=== PATIENT | male | born 1985 | race Caucasian/White ===

== ENCOUNTER 2018-12-26 10:26 | Emergency (ER) | payer OTHER, BC ==
[2018-12-26] MEDS ORDERED: methylPREDNISolone Sodium Succinate 125 MG/2 ML SDV IVPUSH ONE (11:03)
[2018-12-26] MEDS ORDERED: diphenhydrAMINE 50 MG/ML SDV IVPUSH ONE (11:05)
[2018-12-26] MEDS ORDERED: Famotidine 20 MG/2 ML SDV IVPUSH ONE (11:05)
[2018-12-26] MEDS ORDERED: Cephalexin 500 MG Cap PO ONE (11:05)
--- NOTE | 2018-12-26 11:13 | EDM.PDOC ---
ED HPI GENERAL MEDICAL PROBLEM - General Chief Complaint: Skin Complaint Stated Complaint: BITE Time Seen by Provider: 12/26/18 10:54 Source of Information: Reports: Patient History Limitations: Reports: No Limitations - History of Present Illness INITIAL COMMENTS - FREE TEXT/NARRATIVE: Presents reporting a sudden onset of right elbow redness and tenderness. The patient states that he noticed a red tender hard lump on his right elbow early this morning and that by 10:00 a large area of redness had developed and then a streak all the way up into his axilla. He works for the [employer] and was out with the [employer] team at 3:30 in the morning. At that time his elbow was perfectly normal as it was when he went back to bed when he got home. No known injury. He has not been feverish. No wheezing, lip tongue or throat swelling. - Related Data Allergies Allergy/AdvReac Type Severity Reaction Status Date / Time amoxicillin Allergy Hives Verified 12/26/18 10:35 Home Meds: Home Meds Cephalexin [Keflex] 500 mg PO QID #28 capsule 12/26/18 [Rx] predniSONE [Prednisone] 2 tab PO DAILY #10 tablet 12/26/18 [Rx] Past Medical History - Past Health History Medical/Surgical History: Denies Medical/Surgical History HEENT History: Reports: None Cardiovascular History: Reports: None Respiratory History: Reports: None Gastrointestinal History: Reports: None Genitourinary History: Reports: None Musculoskeletal History: Reports: Fracture Neurological History: Reports: None Psychiatric History: Reports: None Endocrine/Metabolic History: Reports: None Hematologic History: Reports: None Immunologic History: Reports: None Oncologic (Cancer) History: Reports: None Dermatologic History: Reports: None - Infectious Disease History Infectious Disease History: Reports: Chicken Pox - Past Surgical History Head Surgeries/Procedures: Reports: None Musculoskeletal Surgical History: Reports: ORIF, Other (See Below) Other Musculoskeletal Surgeries/Procedures:: Right Hand Social & Family History - Family History Family Medical History: Noncontributory Cardiac: Reports: [place] Neurological: Reports: CVA, Dementia - Tobacco Use Smoking Status *Q: Current Every Day Smoker Years of Tobacco use: 6 Packs/Tins Daily: 0.5 - Caffeine Use Caffeine Use: Reports: Energy Drinks - Alcohol Use Days Per Week of Alcohol Use: 2 Number of Drinks Per Day: 2 Total Drinks Per Week: 4 - Recreational Drug Use Recreational Drug Use: No - Living Situation & Occupation Occupation: Employed ED ROS GENERAL - Review of Systems Review Of Systems: ROS reveals no pertinent complaints other than HPI. ED EXAM, SKIN/RASH Exam: See Below Exam Limited By: No Limitations General Appearance: Alert, No Apparent Distress Ears: Normal External Exam Nose: Normal Inspection Throat/Mouth: Normal Inspection, Normal Lips, Normal Oropharynx, Normal Voice, No Airway Compromise Head: Atraumatic, Normocephalic Neck: Normal Inspection Respiratory/Chest: No Respiratory Distress, Lungs Clear, Normal Breath Sounds Cardiovascular: Normal Peripheral Pulses, Regular Rate, Rhythm Extremities: Other (Right) Neurological: Alert, Oriented Skin: Other (Right elbow firm tender lump medial with 5 cm surrounding erythema mild swelling and a streak of redness going down into the axilla) Associated features: Warmth, Tenderness, Swelling Course - Vital Signs Last Recorded V/S: Last Vital Signs Temp 36.0 C 12/26/18 10:33 Pulse 105 H 12/26/18 10:33 Resp 16 12/26/18 10:33 BP 142/78 H 12/26/18 10:33 Pulse Ox 95 12/26/18 10:33 - Orders/Labs/Meds Meds: Medications Discontinued Medications Generic Name Dose Route Start Last Admin Trade Name Nicoq PRN Reason Stop Dose Admin Cephalexin 500 mg 12/26/18 11:05 12/26/18 11:40 Keflex PO 12/26/18 11:06 500 mg ONETIME ONE Administration Diphenhydramine HCl 50 mg 12/26/18 11:05 12/26/18 11:18 Benadryl IVPUSH 12/26/18 11:06 50 mg ONETIME ONE Administration Famotidine 20 mg 12/26/18 11:05 12/26/18 11:18 Pepcid IVPUSH 12/26/18 11:06 20 mg ONETIME ONE Administration Methylprednisolone Sodium Succinate 125 mg 12/26/18 11:03 12/26/18 11:18 Solu-Medrol IVPUSH 12/26/18 11:04 125 mg ONETIME ONE Administration - Re-Assessments/Exams Free Text/Narrative Re-Assessment/Exam: 12/26/18 12:21 Redness is regressing. Remaining redness circled. Departure - Departure Time of Disposition: 12:21 Disposition: Home, Self-Care 01 Condition: Good Clinical Impression: Insect bite Qualifiers: Encounter type: initial encounter Site of insect bite: elbow - Discharge Information *PRESCRIPTION DRUG MONITORING PROGRAM REVIEWED*: Not Applicable Referrals: PCP,None [Primary Care Provider] - [facility] [Outside] [facility] [Outside] Forms: ED Department Discharge Additional Instructions: 1. Take your antibiotic 4 times a day as directed 2. Take prednisone 2 tabs once daily for next 4 days 3. Benadryl 50 mg 3 times daily as needed for itching 4. Cool packs to lump 20 minutes every 3-4 hours 5. Return promptly for fever, racing heart, expanding redness 6. Follow-up in primary care
[2018-12-26 12:31] VITALS: BP 124/82
== END 2018-12-26 12:33 | disposition home or self-care (01) ==
LOC: MW.ED 10:26
DX: S50.361A Insect bite (nonvenomous) of right elbow, initial encounter (principal); W57.XXXA Bitten or stung by nonvenomous insect and other nonvenomous arthropods, initial encounter; Z88.1 Allergy status to other antibiotic agents; F17.210 Nicotine dependence, cigarettes, uncomplicated
CPT/HCPCS: 96374; 96375; 99283; A9270; J1200; J2930; J3490

== ENCOUNTER 2019-04-08 20:37 | Emergency (ER) | payer OTHER, BC ==
--- NOTE | 2019-04-08 20:49 | EDM.PDOC ---
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 I was physically in the room during this event and the patient became agitated and pulled her IV out and blood went on the bed as well as onto staff members and this officer. There were no skin breaks or any other trauma involved with this. The officer like to be evaluated and we will do the exposure labs on him as well as the source who is also still present in the ED. The patient said he did get some blood on his fingers which he quickly washed off and he thinks that some may have splashed into his lip area/mouth. He has no complaints and his tetanus shot is up-to-date; he says he is only here due to his employers insistence Review of systems: As per history of present illness and below otherwise all systems reviewed and negative. Past medical history: As per history of present illness and as reviewed below otherwise noncontributory. Surgical history: As per history of present illness and as reviewed below otherwise noncontributory. Social history: No reported history of drug or alcohol abuse. Family history: As per history of present illness and as reviewed below otherwise noncontributory. Physical exam: General: Well-developed well-nourished man who is nontoxic and vital signs are noted by me HEENT: Atraumatic, normocephalic, negative for conjunctival pallor or scleral icterus, mucous membranes moist, throat clear, neck supple, nontender, trachea midline. Air is no oropharyngeal swelling or lesions Lungs: Clear to auscultation, breath sounds equal bilaterally, chest nontender. Heart: S1S2, regular in rhythm no overt murmurs Abdomen: Soft, nondistended, nontender. NABS Pelvis: Deferred Genitourinary: Deferred. Rectal: Deferred. Extremities: Atraumatic, full range of motion without defects or deficits. Neurovascular unremarkable. Neuro: Awake, alert, oriented. Cranial nerves II through XII unremarkable. Cerebellum unremarkable. Motor and sensory unremarkable throughout. Exam nonfocal. Diagnostics: Body fluid exposure protocol with the labs were drawn on this patient as well as the source. Therapeutics: [] Impression: body fluid exposure Definitive disposition and diagnosis as appropriate pending reevaluation and review of above. - Related Data Allergies Allergy/AdvReac Type Severity Reaction Status Date / Time amoxicillin Allergy Hives Verified 12/26/18 10:35 Home Meds: Home Meds Cephalexin [Keflex] 500 mg PO QID #28 capsule 12/26/18 [Rx] predniSONE [Prednisone] 2 tab PO DAILY #10 tablet 12/26/18 [Rx] Past Medical History - Past Health History Medical/Surgical History: Denies Medical/Surgical History HEENT History: Reports: None Cardiovascular History: Reports: None Respiratory History: Reports: None Gastrointestinal History: Reports: None Genitourinary History: Reports: None Musculoskeletal History: Reports: Fracture Neurological History: Reports: None Psychiatric History: Reports: None Endocrine/Metabolic History: Reports: None Hematologic History: Reports: None Immunologic History: Reports: None Oncologic (Cancer) History: Reports: None Dermatologic History: Reports: None - Infectious Disease History Infectious Disease History: Reports: Chicken Pox - Past Surgical History Head Surgeries/Procedures: Reports: None Musculoskeletal Surgical History: Reports: ORIF, Other (See Below) Other Musculoskeletal Surgeries/Procedures:: Right Hand Social & Family History - Family History Family Medical History: Noncontributory Cardiac: Reports: [place] Neurological: Reports: CVA, Dementia - Caffeine Use Caffeine Use: Reports: Energy Drinks - Living Situation & Occupation Occupation: Employed ED ROS GENERAL - Review of Systems Review Of Systems: ROS reveals no pertinent complaints other than HPI. ED EXAM, GENERAL - Physical Exam Exam: See Below (see dictation) Course - Orders/Labs/Meds Orders: Active Orders 24 hr Category Date Time Status HEPATITIS B SURFACE AB QUANT [CHEM] Routine Lab 04/08/19 20:43 Ordered HEPATITIS B SURFACE AG [CHEM] Routine Lab 04/08/19 20:43 Ordered HEPATITIS C ANTIBODY [CHEM] Routine Lab 04/08/19 20:43 Ordered HIV12 AG/AB 4TH GEN [CHEM] Routine Lab 04/08/19 20:43 Ordered Departure - Departure Time of Disposition: 20:55 Disposition: Home, Self-Care 01 Condition: Good Clinical Impression: Exposure to potentially hazardous body fluids - Discharge Information Referrals: PCP,None [Primary Care Provider] - Forms: ED Department Discharge Additional Instructions: The following information is given to patients seen in the emergency department who are being discharged to home. This information is to outline your options for follow-up care. We provide all patients seen in our emergency department with a follow-up referral. The need for follow-up, as well as the timing and circumstances, are variable depending upon the specifics of your emergency department visit. If you don't have a primary care physician on staff, we will provide you with a referral. We always advise you to contact your personal physician following an emergency department visit to inform them of the circumstance of the visit and for follow-up with them and/or the need for any referrals to a consulting specialist. The emergency department will also refer you to a specialist when appropriate. This referral assures that you have the opportunity for followup care with a specialist. All of these measure are taken in an effort to provide you with optimal care, which includes your followup. Under all circumstances we always encourage you to contact your private physician who remains a resource for coordinating your care. When calling for followup care, please make the office aware that this follow-up is from your recent emergency room visit. If for any reason you are refused follow-up, please contact the [facility] emergency department at and ask to speak to the emergency department charge nurse. [facility] Primary care- Internal Medicine and Family [address] [address] Please follow-up with your occupational health person and also expect that the results of today's testing from both you and the source of the body fluid will take several days. Return to ER as needed and as discussed.
[2019-04-08 21:02] VITALS: BP 142/84; PULSE 94
== END 2019-04-08 21:08 | disposition home or self-care (01) ==
LOC: MW.ED 20:37
DX: Z77.21 Contact with and (suspected) exposure to potentially hazardous body fluids (principal); Z88.1 Allergy status to other antibiotic agents; Z79.899 Other long term (current) drug therapy
CPT/HCPCS: 36415; 86706; 86803; 87340; 87389; 99282; 99283

== ENCOUNTER 2019-06-08 19:12 | Emergency (ER) | payer BC, OTHER ==
[2019-06-08 19:22] VITALS: BP 125/74; PULSE 78
[2019-06-08] MEDS ORDERED: Ondansetron 4 MG Tab.DIS PO ONE (19:47)
[2019-06-08] MEDS ORDERED: Ketorolac 60 MG/2 ML SDV IM ONE (19:47)
--- NOTE | 2019-06-08 19:51 | EDM.PDOC ---
ED HPI GENERAL MEDICAL PROBLEM - General Chief Complaint: Headache Stated Complaint: HEADACHES Time Seen by Provider: 06/08/19 19:40 - History of Present Illness INITIAL COMMENTS - FREE TEXT/NARRATIVE: HISTORY AND PHYSICAL: History of present illness: The patient is a 33-year-old male who presents with a one-week history of headache which is more on the right side for which she has had some nausea and only vomited twice today and has pain and pressure behind his eyes and face. He also complains of pain to his right ear and feeling like he has diminished hearing loss in his left ear only taken Tylenol for pain management and he otherwise has been eating and drinking normally. He has no chest pain or shortness of breath no URI symptoms abdominal pain and no history of trauma to his head or neck. He has no swollen glands and no neck or back pain. Take pain as pressure and he feels like he is sensitive to light on that side. He's had no nasal drainage. Review of systems: As per history of present illness and below otherwise all systems reviewed and negative. Past medical history: As per history of present illness and as reviewed below otherwise noncontributory. Surgical history: As per history of present illness and as reviewed below otherwise noncontributory. Social history: No reported history of drug or alcohol abuse. Family history: As per history of present illness and as reviewed below otherwise noncontributory. Physical exam: Dermal: Well-developed well-nourished man who is nontoxic and vital signs are noted by me HEENT: Atraumatic, normocephalic, pupils reactive, negative for conjunctival pallor or scleral icterus, mucous membranes moist, throat clear, neck supple, nontender, trachea midline. Turbinates are mildly boggy bilaterally and the patient has exquisite tenderness with palpation of the right maxillary sinus. The left TM is unable to be seen due to cerumen impaction which would likely explain the patient's hearing loss and the right ear has a very diminished light reflex with a dull reddened TM but no external canal debris and no mastoid tenderness or redness bilaterally. There is no cervical adenopathy or nuchal rigidity Lungs: Clear to auscultation, breath sounds equal bilaterally, chest nontender. Heart: S1S2, regular in rhythm no overt murmurs Abdomen: Soft, nondistended, nontender. Negative for masses or hepatosplenomegaly. Negative for costovertebral tenderness. Pelvis: Stable nontender. Genitourinary: Deferred. Rectal: Deferred. Extremities: Atraumatic, negative for cords or calf pain. Neurovascular unremarkable. Neuro: Awake, alert, oriented. Cranial nerves II through XII unremarkable. Cerebellum unremarkable. Motor and sensory unremarkable throughout. Exam nonfocal. Diagnostics: [] Therapeutics: Zofran ODT, Toradol IM Impression: Right sinusitis, right otitis media, left cerumen impaction Definitive disposition and diagnosis as appropriate pending reevaluation and review of above. Headache Pain Score (Numeric/FACES): 7 - Related Data Allergies Allergy/AdvReac Type Severity Reaction Status Date / Time amoxicillin Allergy Hives Verified 06/08/19 19:24 Penicillins Allergy Hives Verified 06/08/19 19:24 Home Meds: Home Meds . [No Known Home Meds] 06/08/19 [History] Past Medical History - Past Health History Medical/Surgical History: Denies Medical/Surgical History HEENT History: Reports: None Cardiovascular History: Reports: None Respiratory History: Reports: None Gastrointestinal History: Reports: None Genitourinary History: Reports: None Musculoskeletal History: Reports: Fracture Neurological History: Reports: None Psychiatric History: Reports: None Endocrine/Metabolic History: Reports: None Hematologic History: Reports: None Immunologic History: Reports: None Oncologic (Cancer) History: Reports: None Dermatologic History: Reports: None - Infectious Disease History Infectious Disease History: Reports: Chicken Pox - Past Surgical History Head Surgeries/Procedures: Reports: None Musculoskeletal Surgical History: Reports: ORIF, Other (See Below) Other Musculoskeletal Surgeries/Procedures:: Right Hand Social & Family History - Family History Family Medical History: Noncontributory Cardiac: Reports: [place] Neurological: Reports: CVA, Dementia - Tobacco Use Smoking Status *Q: Never Smoker Second Hand Smoke Exposure: No - Caffeine Use Caffeine Use: Reports: None - Recreational Drug Use Recreational Drug Use: No - Living Situation & Occupation Occupation: Employed ED ROS GENERAL - Review of Systems Review Of Systems: Comprehensive ROS is negative, except as noted in HPI. ED EXAM, GENERAL - Physical Exam Exam: See Below (see Dictation) Course - Vital Signs Last Recorded V/S: Last Vital Signs Temp 35.7 C 06/08/19 19:19 Pulse 78 06/08/19 19:19 Resp 18 11/15/19 19:19 BP 125/74 06/08/19 19:19 Pulse Ox 96 06/08/19 19:19 - Orders/Labs/Meds Orders: Active Orders 24 hr Category Date Time Status Ketorolac [Toradol] Med 06/08/19 19:47 Once 60 mg IM ONETIME ONE Ondansetron [Zofran ODT] Med 06/08/19 19:47 Once 4 mg PO ONETIME ONE Medication Orders Ketorolac Tromethamine (Toradol) 60 mg IM ONETIME ONE Stop: 06/08/19 19:48 Ondansetron HCl (Zofran Odt) 4 mg PO ONETIME ONE Stop: 06/08/19 19:48 Meds: Medications Generic Name Dose Route Start Last Admin Trade Name Nicoq PRN Reason Stop Dose Admin Ketorolac Tromethamine 60 mg 06/08/19 19:47 Toradol IM 06/08/19 19:48 ONETIME ONE Ondansetron HCl 4 mg 06/08/19 19:47 Zofran Odt PO 06/08/19 19:48 ONETIME ONE Departure - Departure Time of Disposition: 19:49 Disposition: Home, Self-Care 01 Condition: Good Clinical Impression: Sinusitis Right otitis media Qualifiers: Otitis media type: unspecified Qualified Code(s): H66.91 - Otitis media, unspecified, right ear - Discharge Information Referrals: PCP,None [Primary Care Provider] - Additional Instructions: The following information is given to patients seen in the emergency department who are being discharged to home. This information is to outline your options for follow-up care. We provide all patients seen in our emergency department with a follow-up referral. The need for follow-up, as well as the timing and circumstances, are variable depending upon the specifics of your emergency department visit. If you don't have a primary care physician on staff, we will provide you with a referral. We always advise you to contact your personal physician following an emergency department visit to inform them of the circumstance of the visit and for follow-up with them and/or the need for any referrals to a consulting specialist. The emergency department will also refer you to a specialist when appropriate. This referral assures that you have the opportunity for followup care with a specialist. All of these measure are taken in an effort to provide you with optimal care, which includes your followup. Under all circumstances we always encourage you to contact your private physician who remains a resource for coordinating your care. When calling for followup care, please make the office aware that this follow-up is from your recent emergency room visit. If for any reason you are refused follow-up, please contact the [facility] emergency department at and ask to speak to the emergency department charge nurse. [facility] Primary care- Internal Medicine and Family [address] [address] Push hydration and use [id number] Tylenol along with ibuprofen, 800 mg every 8 hours, for pain management and also add in antihistamine over-the- counter such as Zyrtec/Claritin/Benadryl/Bibiana. Please take antibiotics as directed and follow-up in the clinic for reevaluation and further care. You may also discuss with your provider removal of the impacted cerumen on the left which may help with your hearing. Return to ER as needed and as discussed - My Orders Last 24 Hours: My Active Orders 06/08/19 19:47 Ketorolac [Toradol] 60 mg IM ONETIME ONE Ondansetron [Zofran ODT] 4 mg PO ONETIME ONE - Assessment/Plan Last 24 Hours: My Active Orders 06/08/19 19:47 Ketorolac [Toradol] 60 mg IM ONETIME ONE Ondansetron [Zofran ODT] 4 mg PO ONETIME ONE
== END 2019-06-08 20:31 | disposition home or self-care (01) ==
LOC: MW.ED 19:12
DX: J32.9 Chronic sinusitis, unspecified (principal); H66.91 Otitis media, unspecified, right ear; H61.22 Impacted cerumen, left ear; Z88.0 Allergy status to penicillin
CPT/HCPCS: 96372; 99284; A9270; J1885; 99282

== ENCOUNTER 2021-04-05 15:23 | Emergency (ER) | payer BC ==
[2021-04-05] MEDS ORDERED: Ketorolac 60 MG/2 ML SDV IM ONE (15:43)
--- NOTE | 2021-04-05 15:48 | EDM.PDOC ---
ED HPI GENERAL MEDICAL PROBLEM - General Chief Complaint: ENT Problem Stated Complaint: THROAT CLOSING UP Time Seen by Provider: 04/05/21 15:36 Source of Information: Reports: Patient History Limitations: Reports: No Limitations - History of Present Illness INITIAL COMMENTS - FREE TEXT/NARRATIVE: HISTORY AND PHYSICAL: History of present illness: The patient is a 35-year-old male who presents to the emergency room with complaints of a sore throat that started last night. The patient states that he threw up this a.m. and is having episodes of diarrhea. He has been having ch ills and hot flashes. The patient states that he is somewhat short of breath and has a headache. He states that he feels like his throat is becoming tighter. The patient has not been taking anything for his throat discomfort. Patient denies any fever, change in vision, syncope or near syncope. Denies any chest pain, back pain, or cough. Denies any abdominal pain, constipation or dysuria. Has not noted any blood in urine or stool. Patient has been eating and drinking appropriately. The patient states that he had Covid 2 to 3 months ago. He states that he is not vaccinated. Review of systems: As per history of present illness and below otherwise all systems reviewed and negative. Past medical history: As per history of present illness and as reviewed below otherwise noncontributory. Surgical history: As per history of present illness and as reviewed below otherwise noncontributory. Social history: See social history for further information Family history: As per history of present illness and as reviewed below otherwise noncontributory. Physical exam: General: Well developed and well nourished. Alert and orientated x 3. Nontoxic in appearance and in no acute distress. Vital signs are stable and have been reviewed by me. Nursing notes were reviewed. HEENT: Atraumatic, normocephalic, pupils equal and reactive bilaterally, negative for conjunctival pallor or scleral icterus, mucous membranes moist, TMs normal bilaterally, throat 2+ and erythematous, neck supple, nontender, trachea midline. No drooling or trismus noted. No meningeal signs. No hot potato voice noted. Lungs: Clear to auscultation bilaterally. No wheezes, rales, or rhonchi. Chest nontender. Normal work of breathing, no accessory muscles used. Heart: S1S2, regular rate and rhythm without overt murmur, gallops, or rubs. No JVD. No peripheral edema Abdomen: Soft, nondistended, nontender. Normoactive bowel sounds. Negative for masses or costovertebral tenderness. Skin: Intact, warm, dry. No lesions or rashes noted. Hematologic: No petechiae or purpra. Mucosa appropriate color and normal nail bed color and refill. Extremities: Atraumatic, moves all extremities per self without difficulty or deficits, negative for cords or calf pain. Neurovascular unremarkable. Neuro: Awake, alert, oriented. Cranial nerves II through XII unremarkable. Cerebellum unremarkable. Motor and sensory unremarkable throughout. Exam nonfocal. Psychiatric: Mood and affect are appropriate. Normal thought process. Answering questions appropriately. Notes: *This patient was seen and evaluated during the 2019 SARS-CoV-2 novel coronavirus pandemic period. Community viral transmission is ongoing at time of this encounter and the emergency department is operating under pandemic response procedures. As stated above the patient is a 35-year-old man who presents with a sore throat that started last night. We will obtain a Covid swab and a strep swab. I have treated the pain and discomfort with Toradol 60 mg IM and viscous lidocaine orally. The patient had some pain relief with the Toradol and viscous lidocaine The patient's swab is positive for strep. The patient is allergic to penicillin so we will treat with azithromycin 500 mg for 5 days. We will give the patient a note for work for all for 2 days. Patient is agreeable with this discharge plan. The patient's Covid came back positive and I cut the patient as he was walking out the door to inform him that he is indeed Covid positive. The patient states that his children just got off of quarantine for his children being Covid positive. The patient states that he was asymptomatic during the entire time his children were sick. I advised the patient to follow quarantine guidelines again and to return to the emergency department if he became short of breath. I advised the patient that he needed to get a oxygen saturation and the patient stated that he had been through this several times. I have talked with the patient about today's findings, in addition to providing specific details for plan of care. Reassessment at the time of disposition demonstrates that the patient is in no acute distress. The patient is stable for discharge, counseling was provided and we discussed in great detail signs and symptoms that would prompt them to return to the Emergency Department. Medication, follow up and supportive care measures were reviewed and discussed. Voices understanding and is agreeable to plan of care. Denies any further questions or concerns at this time. Diagnostics: COVID-19 swab and strep swab Therapeutics: 60 mg IM and viscous lidocaine orally Prescription: Azithromycin 500 mg for a total of 5 days Impression: Strep pharyngitis, COVID-19 Plan: 1. You were evaluated today on an emergent basis. Your plaints of sore throat was evaluated with a strep swab and Covid swab. Your strep came back positive. I prescribed you azithromycin 500 mg daily for a total of 5 days with your first dose in the emergency department. You can use warm salt water gargles for pain or discomfort. You can use Chloraseptic spray for your throat pain. 2. You can alternate Tylenol and ibuprofen as needed for pain and fever management. 3. We encourage you to follow up with your primary care provider and/or recommended specialist in the next few days for re-evaluation and further care/management. 4. If your symptoms should worsen, new symptoms develop or any of the signs and symptoms we discussed should arise please return to the emergency room or call 911 (if needed). Definitive disposition and diagnosis as appropriate pending reevaluation and review of above. throat Pain Score (Numeric/FACES): 8 - Related Data Allergies Allergy/AdvReac Type Severity Reaction Status Date / Time amoxicillin Allergy Hives Verified 04/05/21 15:36 Penicillins Allergy Hives Verified 04/05/21 15:36 Home Meds: Home Meds Azithromycin 500 mg PO DAILY 5 Days #5 tablet 04/05/21 [Rx] Past Medical History - Past Health History Medical/Surgical History: Denies Medical/Surgical History HEENT History: Reports: None Cardiovascular History: Reports: None Respiratory History: Reports: None Gastrointestinal History: Reports: None Genitourinary History: Reports: None Musculoskeletal History: Reports: Fracture Neurological History: Reports: None Psychiatric History: Reports: None Endocrine/Metabolic History: Reports: None Hematologic History: Reports: None Immunologic History: Reports: None Oncologic (Cancer) History: Reports: None Dermatologic History: Reports: None - Infectious Disease History Infectious Disease History: Reports: Chicken Pox - Past Surgical History Head Surgeries/Procedures: Reports: None HEENT Surgical History: Reports: None Cardiovascular Surgical History: Reports: None Respiratory Surgical History: Reports: None GI Surgical History: Reports: None Male Surgical History: Reports: None Endocrine Surgical History: Reports: None Neurological Surgical History: Reports: None Musculoskeletal Surgical History: Reports: ORIF, Other (See Below) Other Musculoskeletal Surgeries/Procedures:: Right Hand Oncologic Surgical History: Reports: None Dermatological Surgical History: Reports: None Social & Family History - Family History Family Medical History: No Pertinent Family History Cardiac: Reports: [place] Neurological: Reports: CVA, Dementia - Tobacco Use Tobacco Use Status *Q: Former Tobacco User Used Tobacco, but Quit: No - Caffeine Use Caffeine Use: Reports: None - Recreational Drug Use Recreational Drug Use: No - Living Situation & Occupation Occupation: Employed ED ROS ENT - Review of Systems Review Of Systems: Comprehensive ROS is negative, except as noted in HPI. ED EXAM, ENT - Physical Exam Exam: See Below (See dictation) Course - Vital Signs Last Recorded V/S: Last Vital Signs Temp 97.8 F 04/05/21 15:33 Pulse 96 04/05/21 16:59 Resp 17 04/05/21 16:59 BP 112/68 04/05/21 16:59 Pulse Ox 98 04/05/21 16:59 - Orders/Labs/Meds Labs: Laboratory Tests 04/05/21 04/05/21 Range/Units 15:40 15:40 SARS-CoV-2 RNA (SKYE) POSITIVE H (NEGATIVE) Group A Strep (PCR) DETECTED H (NOT DETECT) Meds: Medications Discontinued Medications Generic Name Dose Route Start Last Admin Trade Name Freq PRN Reason Stop Dose Admin Azithromycin 500 mg 04/05/21 16:45 04/05/21 16:55 Azithromycin 250 Mg Tab PO 500 mg Q24H LEO Administration Ketorolac Tromethamine 60 mg 04/05/21 15:43 04/05/21 15:54 Ketorolac 60 Mg/2 Ml Sdv IM 04/05/21 15:44 60 mg ONETIME ONE Administration Lidocaine HCl 20 ml 04/05/21 15:57 04/05/21 16:04 Lidocaine 2% Viscous Solution 100 Ml Bottle PO 04/05/21 15:58 Not Given ONETIME ONE Lidocaine HCl 15 ml 04/05/21 15:59 04/05/21 16:03 Lidocaine 2% Viscous Solution 15 Ml Cup PO 04/05/21 16:00 15 ml ONETIME ONE Administration Departure - Departure Time of Disposition: 16:46 Disposition: Home, Self-Care 01 Condition: Good Clinical Impression: Strep sore throat, COVID-19 - Discharge Information *PRESCRIPTION DRUG MONITORING PROGRAM REVIEWED*: Not Applicable *COPY OF PRESCRIPTION DRUG MONITORING REPORT IN PATIENT RAMIN: Not Applicable Prescriptions: Azithromycin 500 mg PO DAILY 5 Days #5 tablet Instructions: Strep Throat, Adult Referrals: PCP,None [Primary Care Provider] - Forms: ED Department Discharge Additional Instructions: The following information is given to patients seen in the emergency department who are being discharged to home. This information is to outline your options for follow-up care. We provide all patients seen in our emergency department with a follow-up referral. The need for follow-up, as well as the timing and circumstances, are variable depending upon the specifics of your emergency department visit. If you don't have a primary care physician on staff, we will provide you with a referral. We always advise you to contact your personal physician following an emergency department visit to inform them of the circumstance of the visit and for follow-up with them and/or the need for any referrals to a consulting specialist. The emergency department will also refer you to a specialist when appropriate. This referral assures that you have the opportunity for follow-up care with a specialist. All of these measure are taken in an effort to provide you with optimal care, which includes your follow-up. Under all circumstances we always encourage you to contact your private physician who remains a resource for coordinating your care. When calling for follow-up care, please make the office aware that this follow-up is from your recent emergency room visit. If for any reason you are refused follow-up, please contact the [facility] Emergency Department at and asked to speak to the emergency department charge nurse. [facility] [address] [place] [id number] [address] [address] Plan: 1. You were evaluated today on an emergent basis. Your plaints of sore throat was evaluated with a strep swab and Covid swab. Your strep came back positive. I prescribed you azithromycin 500 mg daily for a total of 5 days with your first dose in the emergency department. You can use warm salt water gargles for pain or discomfort. You can use Chloraseptic spray for your throat pain. 2. You can alternate Tylenol and ibuprofen as needed for pain and fever management. 3. We encourage you to follow up with your primary care provider and/or recommended specialist in the next few days for re-evaluation and further care/management. 4. If your symptoms should worsen, new symptoms develop or any of the signs and symptoms we discussed should arise please return to the emergency room or call 911 (if needed). Sepsis Event Note (ED) - Evaluation Sepsis Screening Result: No Definite Risk - Focused Exam Vital Signs: Vital Signs Temp Pulse Resp BP Pulse Ox 04/05/21 16:59 96 17 112/68 98 04/05/21 15:33 97.8 F 113 H 18 124/78 97
[2021-04-05] MEDS ORDERED: Lidocaine 2% Viscous Solution 100 ML Bottle PO ONE (15:57)
[2021-04-05] MEDS ORDERED: Lidocaine 2% Viscous Solution 15 ML Cup PO ONE (15:59)
[2021-04-05] MEDS ORDERED: Azithromycin 250 MG Tab PO SCH (16:45)
[2021-04-05 16:59] VITALS: BP 112/68; PULSE 96
== END 2021-04-05 17:00 | disposition home or self-care (01) ==
LOC: MW.ED 15:23
DX: U07.1 COVID-19 (principal); J02.0 Streptococcal pharyngitis; Z88.0 Allergy status to penicillin; Z87.891 Personal history of nicotine dependence
CPT/HCPCS: 87635; 87651; 96372; 99284; A9270; J1885; U0002

== ENCOUNTER 2021-06-14 22:11 | Emergency (ER) | payer OTHER, BC ==
[2021-06-14] MEDS ORDERED: Ibuprofen 600 MG Tab PO ONE (22:17)
[2021-06-14] MEDS ORDERED: Cyclobenzaprine 10 MG Tab PO ONE (22:17)
[2021-06-14] MEDS ORDERED: Diphtheria,Pertussis(Acell),Tetanus Vaccine 0.5 ML Syringe IM ONE (22:17)
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
[2021-06-14 23:32] VITALS: BP 158/86; PULSE 83
== END 2021-06-14 23:23 | disposition home or self-care (01) ==
LOC: MW.ED 22:11
DX: S01.01XA Laceration without foreign body of scalp, initial encounter (principal); F17.200 Nicotine dependence, unspecified, uncomplicated; Z23 Encounter for immunization; Z88.0 Allergy status to penicillin; V89.2XXA Person injured in unspecified motor-vehicle accident, traffic, initial encounter
CPT/HCPCS: 70450; 72125; 90471; 90715; 99284; A9270

== ENCOUNTER 2021-08-18 21:12 | Emergency (ER) | payer OTHER, BC ==
[2021-08-18 21:19] VITALS: BP 133/90; PULSE 116
== END 2021-08-18 22:05 | disposition home or self-care (01) ==
LOC: MW.ED 21:12
DX: S80.212A Abrasion, left knee, initial encounter (principal); Y04.2XXA Assault by strike against or bumped into by another person, initial encounter
CPT/HCPCS: 73562-26-LT; 73562-LT; 99283

== ENCOUNTER 2022-03-05 18:08 | Emergency (ER) | payer BC, OTHER ==
[2022-03-05] MEDS ORDERED: Acetaminophen/HYDROcodone 325-5 MG Tab PO ONE (23:27)
[2022-03-05] MEDS ORDERED: Ketorolac 30 MG/ML SDV IM STA (23:27)
[2022-03-06 00:07] VITALS: BP 137/88; PULSE 78
== END 2022-03-06 00:03 | disposition home or self-care (01) ==
LOC: MW.ED 18:08
DX: S62.001A Unspecified fracture of navicular [scaphoid] bone of right wrist, initial encounter for closed fracture (principal); Z88.0 Allergy status to penicillin; Z88.1 Allergy status to other antibiotic agents; W23.1XXA Caught, crushed, jammed, or pinched between stationary objects, initial encounter
CPT/HCPCS: 73130; 96372; 99283; A9270; J1885

== ENCOUNTER 2022-06-28 20:14 | Emergency (ER) | payer BC | END 2022-06-28 20:19 | disposition left against medical advice (07) | LOC: MW.ED 20:14 | DX: Z53.21 Procedure and treatment not carried out due to patient leaving prior to being seen by health care provider (principal) ==

== ENCOUNTER 2025-06-17 09:07 | Emergency (ER) | payer BC ==
[2025-06-17] MEDS ORDERED: Sodium Chloride 0.9% 10 ML Syringe FLUSH PRN (09:15)
[2025-06-17] MEDS ORDERED: Sodium Chloride 0.9% 2.5 ML Syringe FLUSH PRN (09:15)
[2025-06-17] MEDS: EPINEPHrine 1 MG/ML SDV IM ONE (09:24)
[2025-06-17] MEDS: diphenhydrAMINE 50 MG/ML SDV IVPUSH ONE (09:25)
[2025-06-17] MEDS: methylPREDNISolone Sodium Succinate 125 MG/2 ML SDV IVPUSH ONE (09:25)
[2025-06-17] MEDS: Ondansetron 4 MG/2 ML SDV IVPUSH ONE (09:39)
[2025-06-17 09:51] LABS: BASOPHILS ABSOLUTE AUTO 0.03 K/uL (0.00-0.20); BASOPHILS PERCENT AUTO 0.4 % (0.0-1.0); EOSINOPHILS ABSOLUTE AUTO 0.06 K/uL (0.00-0.45); EOSINOPHILS PERCENT AUTO 0.8 % (0.0-6.0); IMMATURE GRAN ABSOLUTE AUTO 0.07 K/uL (0.00-0.05); IMMATURE GRAN PERCENT AUTO 0.9 % (0.0-0.4); LYMPHOCYTES ABSOLUTE AUTO 4.45 K/uL (1.00-4.80); LYMPHOCYTES PERCENT AUTO 56.3 % (24.0-44.0); MEAN PLATELET VOLUME 9.9 fL (9.4-12.4); MONOCYTES ABSOLUTE AUTO 0.33 K/uL (0.00-0.80); MONOCYTES PERCENT AUTO 4.2 % (0.0-8.0); NEUTROPHILS ABSOLUTE AUTO 2.96 K/uL (1.80-7.70); NEUTROPHILS PERCENT AUTO 37.4 % (41.0-71.0); NRBC ABSOLUTE 0.00 K/uL (0.00-0.02); NRBC PERCENT 0.0 /100WBC (0.0-0.2); PLATELET COUNT,PLT 386 K/uL (150-400); RED BLOOD CELL COUNT 5.56 M/uL (4.52-5.90); WHITE BLOOD CELL COUNT,WBC 7.90 K/uL (3.9-11.3)
[2025-06-17 10:04] LABS: INR 1.04 (0.86-1.11)
[2025-06-17 10:17] LABS: BASE EXCESS VENOUS 2.0 (-2.0-3.0); BICARBONATE,VENOUS 29.0 mEq/L (22-29); PCO2 VENOUS 54.0 mmHG (41-51); PH,VENOUS 7.34 (7.32-7.43); PO2 VENOUS 30.0 mmHG (35-45)
[2025-06-17 10:33] LABS: A/G RATIO 1.1 (0.9-1.6); ALANINE AMINOTRANSFERASE,ALT 46 IU/L (14-63); ASPARTATE AMNIOTRANSFERASE,AST 20 IU/L (15-37); BILIRUBIN TOTAL 0.2 mg/dL (0.2-1.0); BLOOD UREA NITROGEN,BUN 15 mg/dL (7.0-18.0); CARBON DIOXIDE,CO2 22.0 mmol/L (21.0-32.0); CHLORIDE,CL 103 mmol/L (98-107); CREATININE 1.2 mg/dL (0.8-1.3); EST CRCL DRUG DOSING (CG) 77.27 mL/min; GLUCOSE RANDOM 172 mg/dL (74-106); POTASSIUM,K 3.6 mmol/L (3.5-5.1); PROTEIN TOTAL,TP 7.7 g/dL (6.4-8.2); SODIUM,NA 137 mmol/L (136-148)
[2025-06-17 10:34] LABS: ESTIMATED GFR 79 mL/min (>60); PRO B-TYPE NATRIUR PEPT,BNPPRO < 5 pg/mL (0-125)
[2025-06-17 12:16] VITALS: BP 110/65; PULSE 100
== END 2025-06-17 12:35 | disposition home or self-care (01) ==
LOC: MW.ED 09:07
DX: T78.2XXA Anaphylactic shock, unspecified, initial encounter (principal); T78.40XA Allergy, unspecified, initial encounter; T36.0X5A Adverse effect of penicillins, initial encounter; R06.02 Shortness of breath; R06.4 Hyperventilation; F41.9 Anxiety disorder, unspecified; F90.9 Attention-deficit hyperactivity disorder, unspecified type; E86.0 Dehydration; Z88.0 Allergy status to penicillin; Z79.899 Other long term (current) drug therapy
CPT/HCPCS: 36415; 71045; 80053; 82803; 83605; 83735; 83880; 84484; 85025; 85610; 87040; 93005; 96361; 96372; 96374; 96375; 99285; J0169; J1200; J2405; J2919; J7030